=== PATIENT | male | born 1995 | race Caucasian/White ===

== ENCOUNTER 2021-07-27 09:41 | Emergency (ER) | payer OTHER | END 2021-07-27 10:26 | disposition home or self-care (01) | LOC: ERS 09:41 | DX: J30.2 Other seasonal allergic rhinitis (principal) | CPT/HCPCS: 99283 ==

== ENCOUNTER 2021-09-10 13:23 | Emergency (ER) | payer OTHER | END 2021-09-10 15:37 | disposition left against medical advice (07) | LOC: ERS 13:23 | DX: Z53.21 Procedure and treatment not carried out due to patient leaving prior to being seen by health care provider (principal) ==